=== PATIENT | female | born 1950 | race African-American/Black ===

== ENCOUNTER → 2017-12-22 15:43 | Outpatient (CLI) | payer MEDICARE, OTHER, SELFPAY ==
[2017-12-23 02:35] LABS: Rapid Plasmin Reagin (RPR) NONREACTIVE (NONREACTIVE)
[2017-12-24 09:20] LABS: Thyroid Peroxidase AB 21 IU/mL (0-34)
== END ==
PROVIDERS: Visit Provider Dermatology Pediatric Dermatology
DX: L65.9 Nonscarring hair loss, unspecified (principal)
CPT/HCPCS: 36415; 86376; 86592